=== PATIENT | female | born 1950 | race Hispanic/Latino ===

== ENCOUNTER 2017-12-10 16:44 | Inpatient (IN) | payer OTHER, MEDICARE ==
[~2017-12-10] VITALS: Ht 149.9 cm; Wt 61.2 kg
[2017-12-10 17:38] LABS: APPEARANCE,URINE Clear (CLEAR); BILIRUBIN,URINE Negative (NEGATIVE); COLOR,URINE Yellow (YELLOW); GLUCOSE, URINE (UA) >=1000 mg/dL (NEGATIVE); KETONES,URINE 15 mg/dL (NEGATIVE); LEUKOCYTE ESTERASE ,URINE Negative (NEGATIVE); NITRATE,URINE Negative (NEGATIVE); OCCULT BLOOD,URINE Negative (NEGATIVE); PROTEIN,URINE POS 1+ (NEGATIVE); UROBILINOGEN,URINE 0.2 mg/dL (0.2-1.0)
[2017-12-10] MEDS ORDERED: MORPHINE SULFATE 4 MG/1ML SYG ONE ×2 (17:41→21:19)
[2017-12-10] MEDS ORDERED: ONDANSETRON HCL 4 MG/2 ML VIAL ONE (17:41)
[2017-12-10] MEDS ORDERED: SODIUM CHLORIDE 0.9% 500ML 500 ML IV ONE (17:42)
[2017-12-10] MEDS ORDERED: IOHEXOL-350 75 ML VIAL IV ONE (17:42)
[2017-12-10 17:43] LABS: BASOPHILS % (AUTO) 0.3 % (0.0-5.0); HEMATOCRIT 42.5 % (36-48); LYMPHOCYTES % (AUTO) 8.4 % (21.0-51.0); MEAN CORPUSCULAR HEMOGLOBIN 31.3 pg (27.0-33.0); MEAN CORPUSCULAR HGB CONC 33.4 g/dL (32.0-36.0); MEAN CORPUSCULAR VOLUME 93.5 fL (79-99); NEUTROPHILS % (AUTO) 88.3 % (40.0-77.0); PLATELET COUNT (AUTO) 183 K/uL (130-400); RED BLOOD CELL COUNT(AUTO) 4.55 MIL/uL (4.00-5.50); RED CELL DISTRIBUTION WIDTH 12.7 % (11.0-15.5); WHITE BLOOD COUNT (AUTO) 16.9 K/uL (4.8-10.8)
[2017-12-10 17:50] LABS: RBC,URINE 0-1 /HPF (0-1); WBC,URINE 0-1 /HPF (0-1)
[2017-12-10 17:51] LABS: BACTERIA,URINE None Seen /HPF (None Seen); SQUAMOUS EPITHELIAL CELL,UR 0-2 /HPF (0-2)
[2017-12-10 17:59] LABS: CREATININE 0.8 mg/dL (0.5-1.5); POTASSIUM 3.8 mmol/L (3.5-5.1)
[2017-12-10 18:05] LABS: ALBUMIN 4.2 g/dL (3.5-5.0); BILIRUBIN,TOTAL 0.5 mg/dL (0.2-1.0); TOTAL PROTEIN, SERUM 8.5 g/dL (6.0-8.3)
[2017-12-10] MEDS ORDERED: SULFAMETHOX-TMP DS 800/160 TAB ONE (19:35)
[2017-12-10] MEDS ORDERED: METRONIDAZOLE 500MG/100ML BAG 100 ML ONE (19:35)
[2017-12-10] MEDS ORDERED: FENTANYL CITRATE PF 50 MCG/1 ML 2ML VIAL ONE (19:40)
[2017-12-10] MEDS ORDERED: DEXTROSE 50%-WATER 50 ML DISP.SYRIN IV PRN (21:00)
[2017-12-10] MEDS ORDERED: SODIUM CHLORIDE 0.9% 10 ML VIAL IVP PRN (21:00)
[2017-12-10] MEDS: LACTATED RINGERS 1000ML 1,000 ML IV SCH (21:00)
[2017-12-10] MEDS ORDERED: GLUCAGON 1MG KIT 1 MG ML IM PRN (21:00)
[2017-12-10] MEDS: INSULIN R PO SS1 SQ SCH (21:00)
[2017-12-10] MEDS ORDERED: INSULIN HUMULIN R 100 UNIT/ML 3ML ONE (23:42)
[2017-12-11 01:30] VITALS: BP 118/69
[2017-12-11] MEDS ORDERED: LISI-613 PO (02:51)
[2017-12-11] MEDS: METRONIDAZOLE 500MG/100ML BAG 100 ML IVPB SCH ×3 (03:21→21:04)
[2017-12-11 04:00] VITALS: BP 113/62
[2017-12-11] MEDS: LACTATED RINGERS 1000ML 1,000 ML IV SCH ×3 (05:00→21:04)
[2017-12-11 05:38] LABS: BASOPHILS % (AUTO) 0.3 % (0.0-5.0); EOSINOPHILS % (AUTO) 0.1 % (0.0-8.0); HEMATOCRIT 35.9 % (36-48); LYMPHOCYTES % (AUTO) 14.8 % (21.0-51.0); MEAN CORPUSCULAR HEMOGLOBIN 32.2 pg (27.0-33.0); MEAN CORPUSCULAR HGB CONC 34.1 g/dL (32.0-36.0); MEAN CORPUSCULAR VOLUME 94.2 fL (79-99); MONOCYTES % (AUTO) 7.1 % (3.0-13.0); NEUTROPHILS % (AUTO) 77.7 % (40.0-77.0); PLATELET COUNT (AUTO) 198 K/uL (130-400); RED BLOOD CELL COUNT(AUTO) 3.82 MIL/uL (4.00-5.50); RED CELL DISTRIBUTION WIDTH 12.9 % (11.0-15.5); WHITE BLOOD COUNT (AUTO) 17.5 K/uL (4.8-10.8)
[2017-12-11 05:49] LABS: HEMOGLOBIN A1C 11.3 % (4.0-6.0)
[2017-12-11 05:57] LABS: ALBUMIN 3.3 g/dL (3.5-5.0); BILIRUBIN,TOTAL 0.5 mg/dL (0.2-1.0); CREATININE 0.8 mg/dL (0.5-1.5); CRP QUANTITATIVE 36.1 mg/L (0.00-9.0); POTASSIUM 4.4 mmol/L (3.5-5.1); TOTAL PROTEIN, SERUM 6.8 g/dL (6.0-8.3)
[2017-12-11] MEDS: INSULIN R PO SS1 SQ SCH ×4 (06:54→21:00)
[2017-12-11 07:30] VITALS: BP 118/65
[2017-12-11] MEDS ORDERED: PNEUMOCOCCAL VACCINE POLYVALENT 0.5 ML/VIAL [PPV] IM SCH (08:45)
[2017-12-11] MEDS: SULFAMETHOX-TMP DS 800/160 TAB PO SCH ×2 (08:51→21:04)
[2017-12-11] MEDS: LISINOPRIL 20 MG TABLET PO SCH (08:59)
[2017-12-11] MEDS: ONDANSETRON HCL 4 MG/2 ML VIAL IVP PRN (09:14)
[2017-12-11] MEDS: MORPHINE SULFATE 2 MG/ML 1ML SYG IVP PRN ×3 (10:17→21:29)
[2017-12-11 11:00] VITALS: BP 104/53
[2017-12-11 16:00] VITALS: BP 131/75
[2017-12-11 20:12] VITALS: BP 112/63
[2017-12-11] MEDS: SIMETHICONE 80 MG TAB.CHEW PO SCH (21:04)
[2017-12-12 00:12] VITALS: BP 122/60
[2017-12-12] MEDS: MORPHINE SULFATE 2 MG/ML 1ML SYG IVP PRN ×3 (01:05→22:00)
[2017-12-12] MEDS: METRONIDAZOLE 500MG/100ML BAG 100 ML IVPB SCH ×2 (03:22→12:48)
[2017-12-12] MEDS: SIMETHICONE 80 MG TAB.CHEW PO SCH ×4 (03:22→22:03)
[2017-12-12 04:00] VITALS: BP 124/69
[2017-12-12 05:02] LABS: BASOPHILS % (AUTO) 0.3 % (0.0-5.0); EOSINOPHILS % (AUTO) 0.4 % (0.0-8.0); HEMATOCRIT 34.1 % (36-48); LYMPHOCYTES % (AUTO) 13.4 % (21.0-51.0); MEAN CORPUSCULAR HEMOGLOBIN 31.2 pg (27.0-33.0); MEAN CORPUSCULAR HGB CONC 33.2 g/dL (32.0-36.0); MONOCYTES % (AUTO) 7.9 % (3.0-13.0); PLATELET COUNT (AUTO) 153 K/uL (130-400); RED BLOOD CELL COUNT(AUTO) 3.63 MIL/uL (4.00-5.50); WHITE BLOOD COUNT (AUTO) 18.7 K/uL (4.8-10.8)
[2017-12-12 05:16] LABS: CREATININE 0.7 mg/dL (0.5-1.5)
[2017-12-12] MEDS: INSULIN R PO SS1 SQ SCH ×3 (06:16→21:00)
[2017-12-12] MEDS: LACTATED RINGERS 1000ML 1,000 ML IV SCH ×3 (06:20→21:00)
[2017-12-12 07:00] VITALS: BP 128/68
[2017-12-12] MEDS: ONDANSETRON HCL 4 MG/2 ML VIAL IVP PRN (07:06)
[2017-12-12] MEDS: SULFAMETHOX-TMP DS 800/160 TAB PO SCH (09:32)
[2017-12-12] MEDS: LISINOPRIL 20 MG TABLET PO SCH (09:33)
[2017-12-12 11:00] VITALS: BP 116/67
[2017-12-12] MEDS ORDERED: LEVOFLOXACIN 500 MG/D5W 100 ML 100 ML IV SCH (12:15)
[2017-12-12] MEDS: ZOSYN 3.375GM+NS 50ML 50 ML IV SCH ×2 (15:20→22:03)
[2017-12-12 16:00] VITALS: BP 110/59
[2017-12-12 20:00] VITALS: BP 120/64
[2017-12-13] VITALS (7 sets, daily range): BP systolic 104–132; BP diastolic 57–72
[2017-12-13] MEDS: MORPHINE SULFATE 2 MG/ML 1ML SYG IVP PRN (01:46)
[2017-12-13] MEDS: SIMETHICONE 80 MG TAB.CHEW PO SCH ×4 (02:44→22:42)
[2017-12-13] MEDS: MORPHINE SULFATE 4 MG/1ML SYG IVP PRN ×2 (05:44→10:55)
[2017-12-13] MEDS: ZOSYN 3.375GM+NS 50ML 50 ML IV SCH ×3 (05:47→22:31)
[2017-12-13] MEDS: LACTATED RINGERS 1000ML 1,000 ML IV SCH ×3 (05:47→22:43)
[2017-12-13] MEDS: INSULIN R PO SS1 SQ SCH ×4 (05:52→22:42)
[2017-12-13 06:01] LABS: BASOPHILS % (AUTO) 0.7 % (0.0-5.0); EOSINOPHILS % (AUTO) 1.2 % (0.0-8.0); HEMATOCRIT 33.6 % (36-48); LYMPHOCYTES % (AUTO) 20.2 % (21.0-51.0); MEAN CORPUSCULAR HEMOGLOBIN 32.2 pg (27.0-33.0); MEAN CORPUSCULAR VOLUME 94.8 fL (79-99); MONOCYTES % (AUTO) 7.5 % (3.0-13.0); NEUTROPHILS % (AUTO) 70.4 % (40.0-77.0); PLATELET COUNT (AUTO) 171 K/uL (130-400); RED BLOOD CELL COUNT(AUTO) 3.55 MIL/uL (4.00-5.50); RED CELL DISTRIBUTION WIDTH 13.2 % (11.0-15.5); WHITE BLOOD COUNT (AUTO) 15.3 K/uL (4.8-10.8)
[2017-12-13 06:10] LABS: CREATININE 0.7 mg/dL (0.5-1.5); POTASSIUM 4.1 mmol/L (3.5-5.1)
[2017-12-13] MEDS: LISINOPRIL 20 MG TABLET PO SCH (09:17)
[2017-12-13] MEDS: POLYETHYLENE GLYCOL 3350 17 GM POWD.PACK PO SCH (22:31)
[2017-12-14] MEDS: SIMETHICONE 80 MG TAB.CHEW PO SCH ×5 (03:31→21:00)
[2017-12-14] MEDS: ACETAMINOPHEN 325 MG TAB PO PRN (03:41)
[2017-12-14 03:57] VITALS: BP 138/67
[2017-12-14] MEDS: LACTATED RINGERS 1000ML 1,000 ML IV SCH ×3 (05:00→20:33)
[2017-12-14 05:24] LABS: BASOPHILS % (AUTO) 0.4 % (0.0-5.0); EOSINOPHILS % (AUTO) 1.3 % (0.0-8.0); HEMATOCRIT 32.9 % (36-48); MEAN CORPUSCULAR HEMOGLOBIN 31.9 pg (27.0-33.0); MEAN CORPUSCULAR HGB CONC 33.7 g/dL (32.0-36.0); MEAN CORPUSCULAR VOLUME 94.6 fL (79-99); MONOCYTES % (AUTO) 8.5 % (3.0-13.0); NEUTROPHILS % (AUTO) 67.8 % (40.0-77.0); PLATELET COUNT (AUTO) 173 K/uL (130-400); RED BLOOD CELL COUNT(AUTO) 3.48 MIL/uL (4.00-5.50); WHITE BLOOD COUNT (AUTO) 12.5 K/uL (4.8-10.8)
[2017-12-14 05:30] LABS: CREATININE 0.6 mg/dL (0.5-1.5); POTASSIUM 3.6 mmol/L (3.5-5.1)
[2017-12-14] MEDS: ZOSYN 3.375GM+NS 50ML 50 ML IV SCH ×3 (06:16→20:33)
[2017-12-14] MEDS: INSULIN R PO SS1 SQ SCH ×4 (06:16→20:34)
[2017-12-14] MEDS: ONDANSETRON HCL 4 MG/2 ML VIAL IVP PRN (06:37)
[2017-12-14 07:00] VITALS: BP 123/60
[2017-12-14] MEDS ORDERED: DIATR MEGLU/DIATRIZOATE SODIUM 30 ML BOTTLE ONE (08:07)
[2017-12-14] MEDS ORDERED: METRONIDAZOLE 500 MG TABLET PO SCH (09:45)
[2017-12-14 11:32] VITALS: BP 142/70
[2017-12-14] MEDS: POLYETHYLENE GLYCOL 3350 17 GM POWD.PACK PO SCH (13:24)
[2017-12-14] MEDS: LISINOPRIL 20 MG TABLET PO SCH (13:24)
[2017-12-14 15:00] VITALS: BP 139/82
[2017-12-14] MEDS ORDERED: DiphenhydrAMINE HCL 50 MG/ML VIAL ONE (15:01)
[2017-12-14] MEDS ORDERED: DiphenhydrAMINE HCL 50 MG/ML VIAL IV PRN (15:15)
[2017-12-14 19:53] VITALS: BP 151/70
[2017-12-14 23:43] VITALS: BP 145/71
[2017-12-15] MEDS ORDERED: DiphenhydrAMINE HCL 50 MG/ML VIAL ONE (02:53)
[2017-12-15] MEDS: SIMETHICONE 80 MG TAB.CHEW PO SCH ×4 (03:00→20:49)
[2017-12-15 04:00] VITALS: BP 140/75
[2017-12-15] MEDS: LACTATED RINGERS 1000ML 1,000 ML IV SCH ×3 (05:32→20:44)
[2017-12-15] MEDS: INSULIN R PO SS1 SQ SCH ×4 (05:45→20:49)
[2017-12-15 06:20] LABS: BASOPHILS % (AUTO) 0.3 % (0.0-5.0); EOSINOPHILS % (AUTO) 0.9 % (0.0-8.0); HEMATOCRIT 37.7 % (36-48); LYMPHOCYTES % (AUTO) 36.9 % (21.0-51.0); MEAN CORPUSCULAR HGB CONC 33.6 g/dL (32.0-36.0); MEAN CORPUSCULAR VOLUME 95.1 fL (79-99); NEUTROPHILS % (AUTO) 53.9 % (40.0-77.0); PLATELET COUNT (AUTO) 269 K/uL (130-400); RED BLOOD CELL COUNT(AUTO) 3.96 MIL/uL (4.00-5.50); RED CELL DISTRIBUTION WIDTH 12.9 % (11.0-15.5)
[2017-12-15 06:29] LABS: CREATININE 0.7 mg/dL (0.5-1.5); POTASSIUM 3.4 mmol/L (3.5-5.1)
[2017-12-15 07:00] VITALS: BP 142/76
[2017-12-15] MEDS ORDERED: LEVOFLOXACIN 500 MG TABLET PO SCH (09:00)
[2017-12-15] MEDS: LISINOPRIL 20 MG TABLET PO SCH (09:33)
[2017-12-15] MEDS: POLYETHYLENE GLYCOL 3350 17 GM POWD.PACK PO SCH (09:33)
[2017-12-15 11:00] VITALS: BP 134/83
[2017-12-15] MEDS: DiphenhydrAMINE HCL 50 MG/ML VIAL IV PRN (13:55)
[2017-12-15 16:00] VITALS: BP 173/102
[2017-12-15] MEDS: METHYLPREDNISOLONE SOD SUCC 40MG/ML 1ML IVP SCH ×2 (17:09→20:49)
[2017-12-15 19:00] VITALS: BP 153/93
[2017-12-16] VITALS: BP 144/86
[2017-12-16] MEDS: SIMETHICONE 80 MG TAB.CHEW PO SCH ×4 (02:17→21:21)
[2017-12-16] MEDS: METHYLPREDNISOLONE SOD SUCC 40MG/ML 1ML IVP SCH ×2 (02:19→08:40)
[2017-12-16] MEDS: DiphenhydrAMINE HCL 50 MG/ML VIAL IV PRN (02:20)
[2017-12-16] MEDS: LACTATED RINGERS 1000ML 1,000 ML IV SCH (02:25)
[2017-12-16 04:00] VITALS: BP 156/72
[2017-12-16 05:42] LABS: BASOPHILS % (AUTO) 0.1 % (0.0-5.0); HEMATOCRIT 39.1 % (36-48); LYMPHOCYTES % (AUTO) 25.8 % (21.0-51.0); MEAN CORPUSCULAR HEMOGLOBIN 31.7 pg (27.0-33.0); MEAN CORPUSCULAR VOLUME 93.3 fL (79-99); MONOCYTES % (AUTO) 1.2 % (3.0-13.0); NEUTROPHILS % (AUTO) 72.9 % (40.0-77.0); PLATELET COUNT (AUTO) 286 K/uL (130-400); RED BLOOD CELL COUNT(AUTO) 4.19 MIL/uL (4.00-5.50); RED CELL DISTRIBUTION WIDTH 12.8 % (11.0-15.5); WHITE BLOOD COUNT (AUTO) 6.5 K/uL (4.8-10.8)
[2017-12-16 05:47] LABS: CREATININE 0.6 mg/dL (0.5-1.5); POTASSIUM 4.1 mmol/L (3.5-5.1)
[2017-12-16] MEDS: INSULIN R PO SS1 SQ SCH ×4 (06:54→21:40)
[2017-12-16 07:00] VITALS: BP 151/72
[2017-12-16] MEDS: LISINOPRIL 20 MG TABLET PO SCH (08:40)
[2017-12-16] MEDS: POLYETHYLENE GLYCOL 3350 17 GM POWD.PACK PO SCH (08:40)
[2017-12-16 11:00] VITALS: BP 142/78
[2017-12-16] MEDS ORDERED: MORPHINE SULFATE 2 MG/ML 1ML SYG IVP PRN (11:00)
[2017-12-16] MEDS: PREDNISONE 20 MG TABLET PO SCH ×2 (12:54→23:04)
[2017-12-16 16:00] VITALS: BP 140/80
[2017-12-16 19:00] VITALS: BP 148/94
[2017-12-16] MEDS ORDERED: INSULIN GLARGINE 100 UNITS/ML 10 ML VIAL SQ SCH (21:00)
[2017-12-16] MEDS: RANITIDINE HCL 15 MG/1 ML PO SCH (21:21)
[2017-12-16] MEDS: DiphenhydrAMINE HCL 25 MG/10 ML ELIXIR UDCUP PO PRN (21:21)
[2017-12-17] VITALS: BP 119/65
[2017-12-17] MEDS: SIMETHICONE 80 MG TAB.CHEW PO SCH ×2 (03:01→08:11)
[2017-12-17 04:50] VITALS: BP 111/63
[2017-12-17 04:51] LABS: HEMATOCRIT 35.2 % (36-48); MEAN CORPUSCULAR HEMOGLOBIN 32.2 pg (27.0-33.0); MEAN CORPUSCULAR HGB CONC 34.4 g/dL (32.0-36.0); MEAN CORPUSCULAR VOLUME 93.5 fL (79-99); PLATELET COUNT (AUTO) 307 K/uL (130-400); RED BLOOD CELL COUNT(AUTO) 3.76 MIL/uL (4.00-5.50); RED CELL DISTRIBUTION WIDTH 12.5 % (11.0-15.5)
[2017-12-17 05:01] LABS: CREATININE 0.8 mg/dL (0.5-1.5); POTASSIUM 3.7 mmol/L (3.5-5.1)
[2017-12-17] MEDS: INSULIN R PO SS1 SQ SCH ×2 (06:34→11:45)
[2017-12-17] MEDS: ACETAMINOPHEN 325 MG TAB PO PRN (06:38)
[2017-12-17] MEDS: POLYETHYLENE GLYCOL 3350 17 GM POWD.PACK PO SCH (08:11)
[2017-12-17] MEDS: LISINOPRIL 20 MG TABLET PO SCH (08:11)
[2017-12-17] MEDS: RANITIDINE HCL 15 MG/1 ML PO SCH (08:11)
[2017-12-17 08:31] VITALS: BP 142/77
[2017-12-17] MEDS ORDERED: DIPH25CA85 PO (11:05)
[2017-12-17] MEDS ORDERED: RANI-248 PO (11:05)
[2017-12-17 11:36] VITALS: BP 139/81
[2017-12-17] MEDS: DiphenhydrAMINE HCL 25 MG/10 ML ELIXIR UDCUP PO PRN (11:41)
[2017-12-17] MEDS: PREDNISONE 20 MG TABLET PO SCH (11:42)
[2017-12-17 15:54] VITALS: BP 135/66
== END 2017-12-17 16:00 | disposition home or self-care (01) | DRG 872 ==
LOC: EDH 16:44 → EDHIP 19:10 → 3BH 12-11 01:40
PROVIDERS: ADMIT Hospitalist; ATTEND Hospitalist
PROC: 3E0234Z Introduction of Serum, Toxoid and Vaccine into Muscle, Percutaneous Approach (ICD-10-PCS; principal; 2017-12-10)
PROC: 3E0134Z Introduction of Serum, Toxoid and Vaccine into Subcutaneous Tissue, Percutaneous Approach (ICD-10-PCS; 2017-12-10)
DX: A41.9 Sepsis, unspecified organism (principal); K57.92 Diverticulitis of intestine, part unspecified, without perforation or abscess without bleeding; K29.70 Gastritis, unspecified, without bleeding; I10 Essential (primary) hypertension; R73.9 Hyperglycemia, unspecified; K57.30 Diverticulosis of large intestine without perforation or abscess without bleeding; K52.9 Noninfective gastroenteritis and colitis, unspecified; Z90.710 Acquired absence of both cervix and uterus; Z88.8 Allergy status to other drugs, medicaments and biological substances; Z23 Encounter for immunization; Z83.3 Family history of diabetes mellitus; Z82.49 Family history of ischemic heart disease and other diseases of the circulatory system
CPT/HCPCS: 36415; 74176; 74177; 80048; 80053; 81001; 82948; 83036; 83605; 83690; 85025; 85027; 86140; 87040; 90732; G0008; G0009; J1200; J1815; J2270; J2405; J2543; J2920; J3010; J3490; J7040; J7120; Q2038; Q9963; Q9967

== ENCOUNTER → 2023-06-19 | Outpatient (CLI) | payer OTHER ==
[~2023-06-19] MED LIST: DIPH25CA85 PO; LISI20TA24 PO; RANI-662 PO
== END | disposition home or self-care (01) ==
LOC: OIH 11:16
PROVIDERS: ATTEND Family Medicine
DX: Z13.6 Encounter for screening for cardiovascular disorders (principal)
CPT/HCPCS: 75571

== ENCOUNTER 2023-09-08 06:52 | Day surgery (SDC) | payer BC, MEDICARE ==
[2023-09-06 14:12] LABS: BASOPHILS # (AUTO) 0.05 K/uL (0.00-0.20); BASOPHILS % (AUTO) 0.6 % (0.0-5.0); EOSINOPHILS # (AUTO) 0.08 K/uL (0.00-0.70); EOSINOPHILS % (AUTO) 0.9 % (0.0-8.0); HEMATOCRIT 33.3 % (36-48); IMMATURE GRANULOCYTE ABSOLUTE 0.04 K/uL (0-1); LYMPHOCYTES # (AUTO) 1.4 K/uL (1.0-4.8); LYMPHOCYTES % (AUTO) 16.2 % (21.0-51.0); MEAN CORPUSCULAR HEMOGLOBIN 30.9 pg (27.0-33.0); MEAN CORPUSCULAR HGB CONC 32.4 g/dL (32.0-36.0); MEAN CORPUSCULAR VOLUME 95.4 fL (79-99); MONOCYTES # (AUTO) 0.6 K/uL (0.1-1.0); MONOCYTES % (AUTO) 6.7 % (3.0-13.0); NEUTROPHILS # (AUTO) 6.7 K/uL (1.8-7.7); NEUTROPHILS % (AUTO) 75.1 % (40.0-77.0); PLATELET COUNT (AUTO) 296 K/uL (130-400); RED BLOOD CELL COUNT(AUTO) 3.49 MIL/uL (4.00-5.50); RED CELL DISTRIBUTION WIDTH 13.7 % (11.0-15.5); WHITE BLOOD COUNT (AUTO) 8.8 K/uL (4.8-10.8)
[2023-09-06 14:30] LABS: INR 0.97 (0.85-1.15); PROTHROMBIN TIME 10.5 SEC (9.6-11.6)
[2023-09-06 14:31] LABS: PARTIAL THROMBOPLASTIN TIME 23.9 SEC (26.3-35.5)
[2023-09-06 14:33] LABS: CREATININE 0.7 mg/dL (0.5-1.0); POTASSIUM 4.5 mmol/L (3.5-5.1)
[2023-09-06 14:40] LABS: B-TYPE NATRIURETIC PEPTIDE 91 pg/mL (0-100)
[2023-09-06 14:55] VITALS: BP 150/80; PULSE 64; RESP 17
[2023-09-08] VITALS (10 sets, daily range): BP systolic 122–159; BP diastolic 62–76; PULSE 54–88; RESP 12–19
[~2023-09-08] VITALS: Ht 149.9 cm; Wt 54.0 kg
[~2023-09-08 06:52] MED LIST changes: +AEC81 PO; +ATOR20TA65 PO; +BEETS PO; +BIOT1TAB22 PO; +CLOP-31 PO; -DIPH25CA85 PO; +DOCU-280 PO; +GLIP5TAB15 PO; -LISI20TA24 PO; +METF-444 PO; +NITR0.4T50 SL; +POLY17PO4 PO; -RANI-662 PO; +VIT B 12 PO
[2023-09-08] MEDS ORDERED: 0.9%NACL 1000ML 1,000 ML IV ONE (07:14)
[2023-09-08] MEDS ORDERED: HEPARIN 10,000 UNIT/10ML (1,000 UNIT/ML) VIAL ONE (08:56)
[2023-09-08] MEDS ORDERED: LIDOCAINE HCL 400MG/20ML VIAL ONE (08:56)
[2023-09-08] MEDS ORDERED: BIVALIRUDIN 250 MG/VIAL IV ONE (08:56)
[2023-09-08] MEDS ORDERED: IOHEXOL 350 MG/ML 100ML INFUS..BTL IV ONE (08:56)
[2023-09-08] MEDS ORDERED: NITROGLYCERIN 50MG VIAL ONE (08:57)
[2023-09-08] MEDS ORDERED: FENTANYL CITRATE PF 50 MCG/1 ML 2ML VIAL ONE (09:22)
[2023-09-08] MEDS ORDERED: MIDAZOLAM HCL 1 MG/ML 2ML VIAL ONE (09:22)
[2023-09-08] MEDS ORDERED: NITROGLYCERIN 4.1 GM SPRAY TL ONE (09:33)
[2023-09-08] MEDS ORDERED: CLOPIDOGREL 300MG TAB ONE (10:15)
[2023-09-08] MEDS ORDERED: DEXTROSE 50%-WATER 50 ML DISP.SYRIN IV PRN (10:30)
[2023-09-08] MEDS ORDERED: GLUCAGON 1MG KIT 1 MG ML IM PRN (10:30)
[2023-09-08] MEDS ORDERED: 0.9%NACL 1000ML 1,000 ML IV SCH (10:30)
[2023-09-08] MEDS ORDERED: INSULIN HUMULIN R 100 UNIT/ML 3ML SQ SCH (11:30)
== END 2023-09-08 15:40 | disposition home or self-care (01) ==
LOC: DAH 06:52
PROVIDERS: ATTEND Internal Medicine Interventional Cardiology
DX: I25.118 Atherosclerotic heart disease of native coronary artery with other forms of angina pectoris (principal); R07.9 Chest pain, unspecified; E78.00 Pure hypercholesterolemia, unspecified; I25.2 Old myocardial infarction; I10 Essential (primary) hypertension; E11.43 Type 2 diabetes mellitus with diabetic autonomic (poly)neuropathy; E11.59 Type 2 diabetes mellitus with other circulatory complications; Z90.710 Acquired absence of both cervix and uterus; Z95.5 Presence of coronary angioplasty implant and graft; Z79.82 Long term (current) use of aspirin; Z79.84 Long term (current) use of oral hypoglycemic drugs; Z79.899 Other long term (current) drug therapy
CPT/HCPCS: 80048; 83880; 85025; 85610; 85730; 36415; 71045; 93005; 93454; 92972; 82948 ×2; C9600; C1761; Q9965 ×3; C1894 ×2; C1769; C1874 ×2; C1760; C1887; C1725; J3010; J3490 ×2; J7030; J2250; J1644; J0583; Q9967; A4215; A4335; A4222; A4221; A4663; A4216; A4606; A4223 ×3; A4554; 99156; 99157

== ENCOUNTER 2024-05-05 05:59 | Day surgery (SDC) | payer BC, MEDICARE ==
[2024-05-04 11:51] VITALS: BP 123/66; PULSE 56; RESP 18; TEMP 97.5
[2024-05-04 12:00] LABS: BASOPHILS # (AUTO) 0.06 K/uL (0.00-0.20); BASOPHILS % (AUTO) 0.8 % (0.0-5.0); EOSINOPHILS # (AUTO) 0.09 K/uL (0.00-0.70); EOSINOPHILS % (AUTO) 1.2 % (0.0-8.0); HEMATOCRIT 31.9 % (36-48); IMMATURE GRANULOCYTE ABSOLUTE 0.02 K/uL (0-1); LYMPHOCYTES # (AUTO) 1.8 K/uL (1.0-4.8); LYMPHOCYTES % (AUTO) 23.8 % (21.0-51.0); MEAN CORPUSCULAR HEMOGLOBIN 31.8 pg (27.0-33.0); MEAN CORPUSCULAR HGB CONC 31.7 g/dL (32.0-36.0); MEAN CORPUSCULAR VOLUME 100.3 fL (79-99); MONOCYTES # (AUTO) 0.5 K/uL (0.1-1.0); NEUTROPHILS % (AUTO) 66.9 % (40.0-77.0); PLATELET COUNT (AUTO) 192 K/uL (130-400); RED BLOOD CELL COUNT(AUTO) 3.18 MIL/uL (4.00-5.50); RED CELL DISTRIBUTION WIDTH 13.1 % (11.0-15.5); WHITE BLOOD COUNT (AUTO) 7.5 K/uL (4.8-10.8)
[2024-05-04 12:16] LABS: INR 1.02 (0.85-1.15); PROTHROMBIN TIME 10.8 SEC (9.6-11.6)
[2024-05-04 12:17] LABS: PARTIAL THROMBOPLASTIN TIME 24.9 SEC (26.3-35.5)
[2024-05-04 12:30] LABS: CREATININE 0.7 mg/dL (0.5-1.0); POTASSIUM 4.1 mmol/L (3.5-5.1)
--- NOTE | 2024-05-04 12:33 | EKG ---
[facility] Test Date: 2024-05-04 Test Time: 11:41:38 Pat Name: JERMAN BARNES Department: [facility] Room: Gender: F Administrative Staff Supervisor: [id number] : 1950 Requested By: BREA SOUZA Order Number: [id number] Reading MD: Chris Blanc Measurements Intervals [place] Rate: 51 P: 14 ND: 159 QRS: 44 QRSD: 88 T: -38 QT: 434 QTc: 402 Interpretive Statements Sinus rhythm Compared to ECG 09/06/2023 13:56:57 Myocardial infarct finding no longer present Electronically Signed On 05-04-2024 14:24:49 CDT by Chris Blanc Please click the below link to view image of tracing.
--- NOTE | 2024-05-04 12:35 | HMCIMG ---
Exam Type: CHEST 1VW Clinical Information: PREOP Comparison: None Findings: The lungs are clear of infiltrates. The heart is normal in size. The bony and soft tissue structures of the chest are unremarkable. Impression: Clear lungs.
[2024-05-05] VITALS (9 sets, daily range): BP systolic 123–147; BP diastolic 53–68; PULSE 45–67; RESP 12–15; TEMP 97.1–97.5
[~2024-05-05] VITALS: Ht 147.3 cm; Wt 51.3 kg
[~2024-05-05 05:59] MED LIST changes: +ATOR10 PO; -BEETS PO; -BIOT1TAB22 PO; +CYAN50009 PO; -DOCU-280 PO; +FISH1CAP27 PO; +GINGER ROOT PO; +LISI1TAB51 PO; +METO-408 PO; -POLY17PO4 PO; +RANO10005 PO; +TOTAL BEETS PO; +TURM500C4 PO; -VIT B 12 PO
[2024-05-05] MEDS ORDERED: VERAPAMIL HCL 2.5 MG/ML VIAL ONE (07:09)
[2024-05-05] MEDS ORDERED: LIDOCAINE HCL 400MG/20ML VIAL ONE (07:09)
[2024-05-05] MEDS ORDERED: NITROGLYCERIN 50MG VIAL ONE (07:10)
[2024-05-05] MEDS ORDERED: HEParin-NS 1,000 UNIT/500 ML 1,000 ML IV ONE (07:10)
[2024-05-05] MEDS ORDERED: IOHEXOL 350 MG/ML 100ML INFUS..BTL IV ONE ×2 (07:13→08:16)
[2024-05-05] MEDS ORDERED: IOHEXOL-350 50ML VIAL IV ONE (07:17)
[2024-05-05] MEDS: 0.9%NACL 1000ML 1,000 ML IV SCH (07:23)
[2024-05-05] MEDS ORDERED: MIDAZOLAM HCL 1 MG/ML 2ML VIAL ONE (07:53)
[2024-05-05] MEDS ORDERED: FENTanyl CITRate PF 50 MCG/1 ML 2ML VIAL ONE (07:53)
[2024-05-05] MEDS ORDERED: HEParin 10,000 UNIT/10ML (1,000 UNIT/ML) VIAL ONE (08:03)
[2024-05-05] MEDS ORDERED: cloPIDOgrel 300MG TAB ONE (08:28)
[2024-05-05] MEDS ORDERED: DEXTROSE 50%-WATER 50 ML DISP.SYRIN IV PRN (09:00)
[2024-05-05] MEDS ORDERED: GLUCAGON 1MG KIT 1 MG ML IM PRN (09:00)
[2024-05-05] MEDS ORDERED: 0.9%NACL 1000ML 1,000 ML IV SCH (09:00)
[2024-05-05] MEDS ORDERED: INSULIN humuLIN R 100 UNIT/ML 3ML SQ SCH (11:30)
--- NOTE | 2024-05-05 15:12 | CCATH ---
PROCEDURE PERFORMED: 1. Left heart catheterization with selective coronary artery angiography of the left and right coronary arteries. 2. Left ventriculography. 3. Angioplasty of the right coronary artery. INDICATIONS: This is a pleasant 73-year-old woman who has a history of coronary artery disease with previous stents. She has had severe chest discomfort. She has undergone thallium stress scintigraphy which shows significant ischemia. She was brought at this time for further evaluation and possible angioplasty. DESCRIPTION OF PROCEDURE: After informed consent was obtained, she was prepped and draped in the usual fashion. Secondary to a short statured, a radial procedure was not felt to be appropriate. She was prepared for a femoral procedure. Femoral groin was prepped without difficulty. Entry into the right femoral artery was made with ultrasound guidance without difficulty. A sheath was placed. Cineangiography of the right and left coronary arteries was done without difficulty. She was found to have diffuse disease of her LAD, a chronically placed stent was patent in the proximal LAD. There is also 80% mid circumflex disease, which supplies a small array of obtuse marginals. The right coronary artery has a patent proximal stent with 80% stenosis just beyond the terminal end of the stent and beyond this, there is another stent with a 99% in-stent restenosis. It was felt that culprit lesions were actually the right. She has stenotic lesions at the terminal end of both previously placed stents. The diagnostic catheter was removed and replaced for a Maral right guider without difficulty. The lesions were wired. A wire was placed distally in the PDA. The most distal lesion which was 99% stenotic lesion just beyond the previously placed stent was then treated with direct stenting of this segment. The stent was long enough that entirely covered the previously placed stent and then distally before the takeoff of the PDA. There was a good angiographic result obtained. The balloon was then pulled back and using the same balloon, the right coronary artery was dilated proximally. Good angiographic result was obtained. She then underwent stenting of this more proximal lesion with a 3.0 x 15 stent with no difficulty. At the end of the procedure, she was left with widely opened right coronary artery supplying the PDA and significant obtuse marginals. The patient tolerated the procedure well. There were no complications. TID: [id number] RECEIPT: [id number]
== END 2024-05-05 12:40 | disposition home or self-care (01) ==
LOC: DAH 05:59
PROVIDERS: ATTEND Internal Medicine Interventional Cardiology
DX: I25.118 Atherosclerotic heart disease of native coronary artery with other forms of angina pectoris (principal); T82.855A Stenosis of coronary artery stent, initial encounter; I11.0 Hypertensive heart disease with heart failure; R07.9 Chest pain, unspecified; I50.32 Chronic diastolic (congestive) heart failure; E11.59 Type 2 diabetes mellitus with other circulatory complications; E11.43 Type 2 diabetes mellitus with diabetic autonomic (poly)neuropathy; E78.00 Pure hypercholesterolemia, unspecified; I25.2 Old myocardial infarction; Z88.1 Allergy status to other antibiotic agents; Z90.710 Acquired absence of both cervix and uterus; Z79.899 Other long term (current) drug therapy; Y71.2 Prosthetic and other implants, materials and accessory cardiovascular devices associated with adverse incidents
CPT/HCPCS: 80048; 85025; 85610; 85730; 36415; 71045; 93005; 85347; 82948; 93458; C9600; C1769 ×2; C1887; C1894 ×2; C1874 ×2; C1760; J3010; J3490 ×3; J7030; J1644 ×2; J2250; Q9967 ×3; A4215; A4222; A4221; A4663; A4216; A4606; A4223 ×3; 96360; 96361; 99156; 99157